=== PATIENT | male | born 1940 | race Caucasian/White ===

== ENCOUNTER 2019-02-03 20:17 | Inpatient (IN) | payer MEDICARE, BC ==
[~2019-02-03] VITALS: Ht 188 cm; Wt 70.4 kg
--- NOTE | 2019-02-03 20:35 | NUR ---
PT. BIB EMS FROM [facility] FOR C/O WEAKNESS AND 2 DAYS OF CONFUSION AFTER RECENTLY MOVING TO THE AREA. REPORTS ANXIETY SINCE MOVE, PER SON WAS STARTED ON ATARAX FOR THAT. PT. WITH DIFFUSE RASH FROM TORSO DOWN TO ARMS/LEGS; PER SON PT. HAS A SIMILAR RASH LAST YEAR WHEN HE WAS ALSO ANEMIC. PT. 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 PT. IS A&O X 4 ON ARRIVAL. SON AT BS. EKG DONE AND PRESENTED TO ERMD. PT. PLACED ON MONITORS. CALL LIGHT IN REACH. ALL SAFETY MEASURES OBSERVED. DR. ROBIN IN TO EVAL PT. AND DISCUSS POC WITH PT. AND SON.
[2019-02-03] MEDS ORDERED: SODIUM CHLORIDE 0.9%, 500ML IVBOLUS ONE ×2 (21:00→21:30)
[2019-02-03] MEDS ORDERED: SODIUM CHLORIDE 0.9% 1,000 ML IV ONE (21:00)
--- NOTE | 2019-02-03 21:19 | NUR ---
B/P AFTER FLUID BOLUS REPORTED TO DR. ROBIN. NEW ORDER FOR 2ND 500ML BOLUS; INITIATED AT THIS TIME.
[2019-02-03 21:21] LABS: ANION GAP 11 mmol/L (5-15); CALCIUM 7.9 mg/dL (8.5-10.1); CHLORIDE 101 mmol/L (98-107); CREATININE 2.65 mg/dL (0.7-1.3)
[2019-02-03] MEDS ORDERED: ONDANSETRON ODT 4 MG PO PRN (22:30)
[2019-02-03] MEDS ORDERED: PROMETHAZINE 25 MG/ML, 1ML IM PRN (22:30)
[2019-02-03] MEDS ORDERED: morphine SULFATE 10 MG/ML, 1ML IVPush PRN (22:30)
[2019-02-03] MEDS ORDERED: DOCUSATE 100 MG CAPSULE PO PRN (22:30)
[2019-02-03] MEDS ORDERED: ONDANSETRON 2MG/ML, 2ML IVPush PRN (22:30)
[2019-02-03] MEDS ORDERED: OXYcodone IR 5MG TABLET PO PRN (22:30)
[2019-02-03] MEDS ORDERED: BISACODYL 10 MG SUPP PR PRN (22:30)
[2019-02-03] MEDS ORDERED: LEVOTHYROXINE 75 MCG TABLET PO SCH (23:00)
[2019-02-03] MEDS: FAMOTIDINE 20 MG TABLET PO SCH (23:07)
[2019-02-03] MEDS: SODIUM CHLORIDE 0.9% 1,000 ML IV SCH (23:07)
[2019-02-03] MEDS: methylPREDNISolone SOD SUCC 40 MG/ML IVPush SCH (23:07)
[2019-02-03 23:08] LABS: FREE T4 (FREE THYROXINE) 0.13 ng/dL (0.76-1.46)
[2019-02-03 23:20] LABS: HEMOGLOBIN A1C 4.5 % (4.2-6.3)
[2019-02-04] VITALS (11 sets, daily range): BP systolic 88–102; BP diastolic 44–64
[2019-02-04] MEDS ORDERED: CARB1TAB5 PO
[2019-02-04] MEDS ORDERED: CARB1TAB2 PO ×2
[2019-02-04 05:36] LABS: MEAN CORPUSCULAR HEMOGLOBIN 34.4 pg (27.5-34.5); MEAN CORPUSCULAR HGB CONC 33.4 g/dL (33.2-36.2); MEAN CORPUSCULAR VOLUME 102.8 fL (81-97); RED BLOOD COUNT 1.88 x10^6/uL (4.38-5.82); RED CELL DISTRIBUTION WIDTH 19.9 % (9.4-14.8)
[2019-02-04 05:40] LABS: CHLORIDE 102 mmol/L (98-107)
[2019-02-04 05:46] LABS: ALANINE AMINOTRANSFERASE < 6 U/L (12-78); ALBUMIN 2.1 g/dL (3.4-5.0); ALKALINE PHOSPHATASE 158 U/L (45-117); ANION GAP 11 mmol/L (5-15); BILIRUBIN,TOTAL 0.8 mg/dL (0.2-1.0); CALCIUM 7.3 mg/dL (8.5-10.1); CHOL/HDL RATIO 2.2; CHOLESTEROL, TOTAL 52 mg/dL (140-239); CREATININE 2.37 mg/dL (0.7-1.3); HDL CHOL % 46 % (26-37); HDL CHOLESTEROL (DIRECT) 24 mg/dL (40-60); LDL CHOLESTEROL,CALCULATED 10 mg/dL (54-169); LDL/HDL RATIO 0.4 (0.5-3.0); TOTAL PROTEIN 6.1 g/dL (6.4-8.2); TRIGLYCERIDES 90 mg/dL (50-200); VLDL CHOLESTEROL 18 mg/dL (0-25)
[2019-02-04 06:02] LABS: MD YES; MEAN PLATELET VOLUME 7.7 fL (7.4-10.4); PLATELET COUNT 89 x10^3/uL (130-400)
[2019-02-04 06:03] LABS: BAND#(MANUAL) 0.68 x10^3/uL; BANDS%(MANUAL) 4 % (0-7); LYMPH#(MANUAL) 0.85 x10^3/uL (1-3.4); LYMPHS% (MANUAL) 5 % (22-44); METAMYELOCYTES# (MANUAL) 0.51 x10^3/uL (0-0); METAMYELOCYTES% (MANUAL) 3 % (0-1); MONOS#(MANUAL) 0.17 x10^3/uL (0.3-2.7); MONOS% (MANUAL) 1 % (2-9); SEG#(MANUAL) 14.79 x10^3/uL (1.8-6.8); SEGS% (MANUAL) 87 % (42-75)
[2019-02-04 06:05] LABS: ANISOCYTOSIS 1+; POLYCHROMASIA 1+
[2019-02-04 06:06] LABS: <PLATELET ESTIMATE> DECREASED; <PLT MORPHOLOGY> NORMAL PLT MORPH
[2019-02-04 07:23] LABS: ABSOLUTE RETICS # 0.062 x10^6/uL (0.5-1.5); RETICULOCYTE COUNT % 2.92 % (0.5-1.5)
[2019-02-04] MEDS: SODIUM CHLORIDE 0.9% 1,000 ML IV SCH (07:43)
[2019-02-04 07:54] LABS: RED BLOOD COUNT 2.13 x10^6/uL (4.38-5.82)
[2019-02-04 08:10] LABS: D-DIMER 10.1 ug/mlFEU (0.00-0.52); INTERNATIONAL NORMALIZED RATIO 1.15 (0.93-1.1)
[2019-02-04] MEDS: LORATADINE 10 MG TABLET PO SCH (08:11)
[2019-02-04] MEDS: FAMOTIDINE 20 MG TABLET PO SCH (08:11)
[2019-02-04] MEDS ORDERED: CARBIDOPA/LEVODOPA 25 MG/100 MG TABLET HOMEMEDPO SCH ×2 (09:00→16:00)
[2019-02-04] MEDS ORDERED: CARBIDOPA/LEVODOPA CR 50 MG/200 MG TABLET HOMEMEDPO SCH (09:00)
[2019-02-04] MEDS ORDERED: SODIUM CHLORIDE 0.9% 1,000ML IVBOLUS ONE (09:30)
[2019-02-04] MEDS: methylPREDNISolone SOD SUCC 40 MG/ML IVPush SCH ×2 (10:32→23:42)
[2019-02-04 10:53] LABS: MICROSCOPIC INDICATED
[2019-02-04 11:15] LABS: CULTURE INDICATED? NO
[2019-02-04 12:10] LABS: MEAN CORPUSCULAR HEMOGLOBIN 32.5 pg (27.5-34.5); MEAN CORPUSCULAR HGB CONC 33.1 g/dL (33.2-36.2); MEAN CORPUSCULAR VOLUME 98.3 fL (81-97); MEAN PLATELET VOLUME 6.7 fL (7.4-10.4); PLATELET COUNT 147 x10^3/uL (130-400); RED BLOOD COUNT 2.35 x10^6/uL (4.38-5.82); RED CELL DISTRIBUTION WIDTH 22.7 % (9.4-14.8)
[2019-02-04 12:27] LABS: MD YES
[2019-02-04 12:29] LABS: BANDS%(MANUAL) 3 % (0-7); LYMPH#(MANUAL) 1.46 x10^3/uL (1-3.4); LYMPHS% (MANUAL) 11 % (22-44); METAMYELOCYTES% (MANUAL) 3 % (0-1); MONOS#(MANUAL) 0.13 x10^3/uL (0.3-2.7); MONOS% (MANUAL) 1 % (2-9); MYELOCYTES% (MANUAL) 3 % (0-0); SEG#(MANUAL) 10.51 x10^3/uL (1.8-6.8); SEGS% (MANUAL) 79 % (42-75)
[2019-02-04 12:34] LABS: <PLATELET ESTIMATE> ADEQUATE; <PLT MORPHOLOGY> NORMAL PLT MORPH; ANISOCYTOSIS 1+; POLYCHROMASIA 1+
[2019-02-04] MEDS: CARBIDOPA/LEVODOPA CR 25 MG/100 MG TABLET PO SCH (13:30)
[2019-02-04] MEDS ORDERED: CARBIDOPA/LEVODOPA CR 25 MG/100 MG TABLET PO SCH (16:00)
[2019-02-04 18:43] LABS: MEAN CORPUSCULAR HEMOGLOBIN 33.5 pg (27.5-34.5); MEAN CORPUSCULAR HGB CONC 33.5 g/dL (33.2-36.2); MEAN PLATELET VOLUME 7.2 fL (7.4-10.4); PLATELET COUNT 134 x10^3/uL (130-400); RED BLOOD COUNT 2.17 x10^6/uL (4.38-5.82); RED CELL DISTRIBUTION WIDTH 22.7 % (9.4-14.8)
[2019-02-04 19:06] LABS: HEMOGRAM NOTE RECHECKED
[2019-02-04 19:07] LABS: MD YES
[2019-02-04 19:09] LABS: ANISOCYTOSIS 1+; BAND#(MANUAL) 1.27 x10^3/uL; BANDS%(MANUAL) 9 % (0-7); LYMPH#(MANUAL) 0.99 x10^3/uL (1-3.4); LYMPHS% (MANUAL) 7 % (22-44); METAMYELOCYTES# (MANUAL) 0.28 x10^3/uL (0-0); METAMYELOCYTES% (MANUAL) 2 % (0-1); MONOS#(MANUAL) 0.28 x10^3/uL (0.3-2.7); MONOS% (MANUAL) 2 % (2-9); MYELOCYTES# (MANUAL) 0.28 x10^3/uL (0-0); MYELOCYTES% (MANUAL) 2 % (0-0); POLYCHROMASIA 1+; SEGS% (MANUAL) 78 % (42-75)
[2019-02-04 19:10] LABS: <PLATELET ESTIMATE> ADEQUATE; <PLT MORPHOLOGY> NORMAL PLT MORPH
[2019-02-04] MEDS: CARBIDOPA/LEVODOPA CR 50 MG/200 MG TABLET HOMEMEDPO SCH (21:02)
[2019-02-05] VITALS (10 sets, daily range): BP systolic 86–93; BP diastolic 46–56
[2019-02-05 00:16] LABS: MEAN CORPUSCULAR HGB CONC 32.9 g/dL (33.2-36.2); MEAN CORPUSCULAR VOLUME 100.3 fL (81-97); PLATELET COUNT 140 x10^3/uL (130-400); RED BLOOD COUNT 2.19 x10^6/uL (4.38-5.82); RED CELL DISTRIBUTION WIDTH 23.1 % (9.4-14.8)
[2019-02-05 00:28] LABS: MD YES
[2019-02-05 00:30] LABS: ANISOCYTOSIS 1+; BAND#(MANUAL) 1.02 x10^3/uL; BANDS%(MANUAL) 7 % (0-7); LYMPH#(MANUAL) 2.47 x10^3/uL (1-3.4); LYMPHS% (MANUAL) 17 % (22-44); METAMYELOCYTES# (MANUAL) 0.15 x10^3/uL (0-0); METAMYELOCYTES% (MANUAL) 1 % (0-1); MONOS#(MANUAL) 0.29 x10^3/uL (0.3-2.7); MONOS% (MANUAL) 2 % (2-9); MYELOCYTES# (MANUAL) 0.29 x10^3/uL (0-0); MYELOCYTES% (MANUAL) 2 % (0-0); OVALOCYTES 1+; POLYCHROMASIA 1+; SEGS% (MANUAL) 71 % (42-75)
[2019-02-05 00:31] LABS: <PLATELET ESTIMATE> ADEQUATE; <PLT MORPHOLOGY> NORMAL PLT MORPH
[2019-02-05 06:03] LABS: MEAN CORPUSCULAR HGB CONC 32.7 g/dL (33.2-36.2); MEAN PLATELET VOLUME 7.3 fL (7.4-10.4); PLATELET COUNT 136 x10^3/uL (130-400); RED BLOOD COUNT 2.16 x10^6/uL (4.38-5.82); RED CELL DISTRIBUTION WIDTH 22.4 % (9.4-14.8)
[2019-02-05 06:09] LABS: ANION GAP 7 mmol/L (5-15); CALCIUM 7.1 mg/dL (8.5-10.1); CHLORIDE 107 mmol/L (98-107); CREATININE 2.34 mg/dL (0.7-1.3)
[2019-02-05] MEDS: PANTOPROZOLE 40MG TABLET PO SCH (06:12)
[2019-02-05] MEDS: LEVOTHYROXINE 75 MCG TABLET PO SCH (06:12)
[2019-02-05 06:47] LABS: MD YES
[2019-02-05 06:50] LABS: ANISOCYTOSIS 1+; BAND#(MANUAL) 1.76 x10^3/uL; BANDS%(MANUAL) 11 % (0-7); EOS#(MANUAL) 0.16 x10^3/uL (0.0-0.4); EOS% (MANUAL) 1 % (1-7); LYMPH#(MANUAL) 0.96 x10^3/uL (1-3.4); LYMPHS% (MANUAL) 6 % (22-44); METAMYELOCYTES# (MANUAL) 1.44 x10^3/uL (0-0); METAMYELOCYTES% (MANUAL) 9 % (0-1); MONOS#(MANUAL) 0.64 x10^3/uL (0.3-2.7); MONOS% (MANUAL) 4 % (2-9); MYELOCYTES# (MANUAL) 0.16 x10^3/uL (0-0); MYELOCYTES% (MANUAL) 1 % (0-0); SEG#(MANUAL) 10.88 x10^3/uL (1.8-6.8); SEGS% (MANUAL) 68 % (42-75)
[2019-02-05 06:51] LABS: POLYCHROMASIA 1+
[2019-02-05 06:52] LABS: <PLATELET ESTIMATE> ADEQUATE; <PLT MORPHOLOGY> NORMAL PLT MORPH; OVALOCYTES 1+
[2019-02-05] MEDS ORDERED: CARBIDOPA/LEVODOPA 25 MG/100 MG TABLET PO SCH (07:30)
[2019-02-05] MEDS: CARBIDOPA/LEVODOPA CR 25 MG/100 MG TABLET PO SCH ×2 (08:00→12:00)
[2019-02-05] MEDS: FAMOTIDINE 20 MG TABLET PO SCH (08:34)
[2019-02-05] MEDS: LORATADINE 10 MG TABLET PO SCH (08:34)
[2019-02-05] MEDS: MIDODRINE 5 MG TABLET PO SCH ×3 (08:35→21:27)
[2019-02-05] MEDS: CARBIDOPA/LEVODOPA CR 50 MG/200 MG TABLET HOMEMEDPO SCH ×2 (08:36→21:27)
[2019-02-05] MEDS ORDERED: NALOXONE 1 MG/ML, 2ML ONE (09:29)
[2019-02-05] MEDS ORDERED: FLUMAZENIL 0.1 MG/1 ML, 5ML ONE (09:29)
[2019-02-05] MEDS ORDERED: MIDAZOLAM 1 MG/ML, 5ML ONE ×2 (09:29)
[2019-02-05] MEDS ORDERED: FENTANYL PF 100 MCG/2ML ONE ×2 (09:29)
[2019-02-05] MEDS: methylPREDNISolone SOD SUCC 40 MG/ML IVPush SCH ×2 (10:30→22:35)
[2019-02-05 12:30] LABS: MEAN CORPUSCULAR HEMOGLOBIN 32.4 pg (27.5-34.5); MEAN CORPUSCULAR HGB CONC 32.6 g/dL (33.2-36.2); MEAN CORPUSCULAR VOLUME 99.4 fL (81-97); MEAN PLATELET VOLUME 7.2 fL (7.4-10.4); PLATELET COUNT 140 x10^3/uL (130-400); RED BLOOD COUNT 2.33 x10^6/uL (4.38-5.82); RED CELL DISTRIBUTION WIDTH 22.5 % (9.4-14.8)
[2019-02-05 12:55] LABS: MD YES
[2019-02-05 12:56] LABS: BAND#(MANUAL) 0.44 x10^3/uL; BANDS%(MANUAL) 3 % (0-7); LYMPH#(MANUAL) 1.92 x10^3/uL (1-3.4); LYMPHS% (MANUAL) 13 % (22-44); METAMYELOCYTES# (MANUAL) 0.44 x10^3/uL (0-0); METAMYELOCYTES% (MANUAL) 3 % (0-1); MONOS#(MANUAL) 0.15 x10^3/uL (0.3-2.7); MONOS% (MANUAL) 1 % (2-9); SEG#(MANUAL) 11.84 x10^3/uL (1.8-6.8); SEGS% (MANUAL) 80 % (42-75)
[2019-02-05 12:57] LABS: <PLATELET ESTIMATE> ADEQUATE; <PLT MORPHOLOGY> NORMAL PLT MORPH; ANISOCYTOSIS 1+; OVALOCYTES 1+; POLYCHROMASIA 1+
[2019-02-05 12:58] LABS: BASOPHILS # (AUTO) 0.01 x10^3/uL (0-0.1); BASOPHILS % (AUTO) 0 % (0-1); EOSINOPHILS % (AUTO) 0 % (1-7); LYMPHOCYTES # (AUTO) 1.73 x10^3/uL (1-3.4); LYMPHOCYTES % (AUTO) 12 % (22-44); MONOCYTES # (AUTO) 0.04 x10^3/uL (0.2-0.8); MONOCYTES % (AUTO) 0 % (2-9); NEUTROPHILS # (AUTO) 13.02 x10^3/uL (1.8-6.8); NEUTROPHILS % (AUTO) 88 % (42-75)
[2019-02-05] MEDS: POLYETHYLENE GLYCOL 17 GM PACKET PO PRN (16:45)
[2019-02-05 18:30] LABS: MEAN CORPUSCULAR HEMOGLOBIN 33.5 pg (27.5-34.5); MEAN CORPUSCULAR HGB CONC 33.4 g/dL (33.2-36.2); MEAN CORPUSCULAR VOLUME 100.1 fL (81-97); MEAN PLATELET VOLUME 7.1 fL (7.4-10.4); PLATELET COUNT 131 x10^3/uL (130-400); RED BLOOD COUNT 2.07 x10^6/uL (4.38-5.82); RED CELL DISTRIBUTION WIDTH 22.2 % (9.4-14.8)
[2019-02-05 18:34] LABS: MD YES
[2019-02-05 19:23] LABS: ANISOCYTOSIS 1+; BAND#(MANUAL) 0.82 x10^3/uL; BANDS%(MANUAL) 6 % (0-7); LYMPH#(MANUAL) 1.51 x10^3/uL (1-3.4); LYMPHS% (MANUAL) 11 % (22-44); METAMYELOCYTES# (MANUAL) 0.96 x10^3/uL (0-0); METAMYELOCYTES% (MANUAL) 7 % (0-1); MYELOCYTES# (MANUAL) 0.27 x10^3/uL (0-0); MYELOCYTES% (MANUAL) 2 % (0-0); OVALOCYTES 1+; POLYCHROMASIA 1+; SEG#(MANUAL) 10.14 x10^3/uL (1.8-6.8); SEGS% (MANUAL) 74 % (42-75)
[2019-02-05 19:24] LABS: <PLATELET ESTIMATE> ADEQUATE; <PLT MORPHOLOGY> NORMAL PLT MORPH
[2019-02-06 00:33] VITALS: BP 91/46
[2019-02-06 00:35] VITALS: BP 94/43
[2019-02-06 05:44] LABS: MEAN CORPUSCULAR HEMOGLOBIN 32.4 pg (27.5-34.5); MEAN CORPUSCULAR HGB CONC 33.1 g/dL (33.2-36.2); MEAN CORPUSCULAR VOLUME 97.8 fL (81-97); MEAN PLATELET VOLUME 6.9 fL (7.4-10.4); PLATELET COUNT 137 x10^3/uL (130-400); RED BLOOD COUNT 2.53 x10^6/uL (4.38-5.82); RED CELL DISTRIBUTION WIDTH 23.1 % (9.4-14.8)
[2019-02-06 05:47] LABS: ANION GAP 9 mmol/L (5-15); CALCIUM 6.8 mg/dL (8.5-10.1); CHLORIDE 108 mmol/L (98-107)
[2019-02-06 05:49] LABS: CREATININE 2.13 mg/dL (0.7-1.3)
[2019-02-06] MEDS: PANTOPROZOLE 40MG TABLET PO SCH (05:49)
[2019-02-06] MEDS: LEVOTHYROXINE 75 MCG TABLET PO SCH (05:49)
[2019-02-06 06:07] LABS: MD YES
[2019-02-06 06:10] LABS: ANISOCYTOSIS 1+; BAND#(MANUAL) 0.98 x10^3/uL; BANDS%(MANUAL) 6 % (0-7); LYMPH#(MANUAL) 2.28 x10^3/uL (1-3.4); LYMPHS% (MANUAL) 14 % (22-44); METAMYELOCYTES# (MANUAL) 0.82 x10^3/uL (0-0); METAMYELOCYTES% (MANUAL) 5 % (0-1); MONOS#(MANUAL) 0.16 x10^3/uL (0.3-2.7); MONOS% (MANUAL) 1 % (2-9); MYELOCYTES# (MANUAL) 1.14 x10^3/uL (0-0); MYELOCYTES% (MANUAL) 7 % (0-0); SEG#(MANUAL) 10.92 x10^3/uL (1.8-6.8); SEGS% (MANUAL) 67 % (42-75)
[2019-02-06 06:11] LABS: ECHINOCYTES 1+; OVALOCYTES 1+; POLYCHROMASIA 1+
[2019-02-06 06:13] LABS: <PLATELET ESTIMATE> ADEQUATE; <PLT MORPHOLOGY> NORMAL PLT MORPH; CRENATED 1+
[2019-02-06] MEDS: CARBIDOPA/LEVODOPA CR 25 MG/100 MG TABLET PO SCH ×4 (08:00→20:27)
[2019-02-06] MEDS: MIDODRINE 5 MG TABLET PO SCH ×3 (08:21→20:27)
[2019-02-06] MEDS: LORATADINE 10 MG TABLET PO SCH (08:21)
[2019-02-06] MEDS: FAMOTIDINE 20 MG TABLET PO SCH (08:21)
[2019-02-06] MEDS: POLYETHYLENE GLYCOL 17 GM PACKET PO PRN (08:21)
[2019-02-06] MEDS: CARBIDOPA/LEVODOPA CR 50 MG/200 MG TABLET HOMEMEDPO SCH ×2 (08:22→09:00)
[2019-02-06] MEDS: methylPREDNISolone SOD SUCC 40 MG/ML IVPush SCH ×2 (09:15→22:59)
[2019-02-06 12:22] VITALS: BP 100/58
[2019-02-06] MEDS: LACTULOSE 20 GM/30 ML UDC PO SCH ×2 (16:21→20:27)
[2019-02-06 18:59] VITALS: BP 106/58
[2019-02-07] VITALS (7 sets, daily range): BP systolic 92–126; BP diastolic 50–82
[2019-02-07] MEDS ORDERED: MELATONIN 5 MG TABLET PO PRN (04:30)
[2019-02-07 05:14] LABS: ANION GAP 7 mmol/L (5-15); CALCIUM 6.7 mg/dL (8.5-10.1); CHLORIDE 110 mmol/L (98-107)
[2019-02-07 05:15] LABS: MEAN CORPUSCULAR HEMOGLOBIN 32.4 pg (27.5-34.5); MEAN CORPUSCULAR HGB CONC 33.2 g/dL (33.2-36.2); MEAN CORPUSCULAR VOLUME 97.8 fL (81-97); PLATELET COUNT 130 x10^3/uL (130-400); RED BLOOD COUNT 2.43 x10^6/uL (4.38-5.82); RED CELL DISTRIBUTION WIDTH 22.3 % (9.4-14.8)
[2019-02-07 05:58] LABS: MD YES
[2019-02-07 06:05] LABS: <PLATELET ESTIMATE> ADEQUATE; <PLT MORPHOLOGY> NORMAL PLT MORPH; ANISOCYTOSIS 1+; BAND#(MANUAL) 1.19 x10^3/uL; BANDS%(MANUAL) 7 % (0-7); CRENATED 1+; LYMPHS% (MANUAL) 10 % (22-44); METAMYELOCYTES# (MANUAL) 1.87 x10^3/uL (0-0); METAMYELOCYTES% (MANUAL) 11 % (0-1); MONOS#(MANUAL) 0.17 x10^3/uL (0.3-2.7); MONOS% (MANUAL) 1 % (2-9); MYELOCYTES# (MANUAL) 0.68 x10^3/uL (0-0); MYELOCYTES% (MANUAL) 4 % (0-0); OVALOCYTES 1+; POLYCHROMASIA 1+; SEG#(MANUAL) 11.39 x10^3/uL (1.8-6.8); SEGS% (MANUAL) 67 % (42-75)
[2019-02-07] MEDS: PANTOPROZOLE 40MG TABLET PO SCH (06:22)
[2019-02-07] MEDS: LEVOTHYROXINE 75 MCG TABLET PO SCH (06:22)
[2019-02-07] MEDS: MIDODRINE 5 MG TABLET PO SCH ×3 (07:59→20:22)
[2019-02-07] MEDS: CARBIDOPA/LEVODOPA CR 50 MG/200 MG TABLET HOMEMEDPO SCH (07:59)
[2019-02-07] MEDS ORDERED: hydrOXyzine 10MG TABLET PO PRN (09:00)
[2019-02-07] MEDS: LORATADINE 10 MG TABLET PO SCH (09:17)
[2019-02-07] MEDS: LACTULOSE 20 GM/30 ML UDC PO SCH ×2 (09:17→20:22)
[2019-02-07] MEDS: CARBIDOPA/LEVODOPA CR 25 MG/100 MG TABLET PO SCH ×3 (09:17→20:22)
[2019-02-07] MEDS: methylPREDNISolone SOD SUCC 40 MG/ML IVPush SCH (09:18)
[2019-02-07 11:11] LABS: OCCULT BLOOD NEGATIVE (NEGATIVE)
[2019-02-07] MEDS ORDERED: ARANESP 100 MCG/ML **ESRD SQ SCH ×2 (12:00→13:00)
[2019-02-08 00:37] LABS: OCCULT BLOOD NEGATIVE (NEGATIVE)
[2019-02-08 01:18] VITALS: BP 104/51
[2019-02-08 05:10] LABS: MEAN CORPUSCULAR HEMOGLOBIN 32.6 pg (27.5-34.5); MEAN CORPUSCULAR HGB CONC 33.1 g/dL (33.2-36.2); MEAN CORPUSCULAR VOLUME 98.7 fL (81-97); MEAN PLATELET VOLUME 7.1 fL (7.4-10.4); PLATELET COUNT 127 x10^3/uL (130-400); RED BLOOD COUNT 2.61 x10^6/uL (4.38-5.82); RED CELL DISTRIBUTION WIDTH 22.5 % (9.4-14.8)
[2019-02-08 05:18] LABS: ANION GAP 8 mmol/L (5-15); CHLORIDE 110 mmol/L (98-107)
[2019-02-08 05:20] LABS: CREATININE 1.91 mg/dL (0.7-1.3)
[2019-02-08 05:38] LABS: MD YES
[2019-02-08 05:46] LABS: BAND#(MANUAL) 1.26 x10^3/uL; BANDS%(MANUAL) 8 % (0-7); LYMPH#(MANUAL) 2.69 x10^3/uL (1-3.4); LYMPHS% (MANUAL) 17 % (22-44); METAMYELOCYTES# (MANUAL) 1.74 x10^3/uL (0-0); METAMYELOCYTES% (MANUAL) 11 % (0-1); MYELOCYTES# (MANUAL) 1.42 x10^3/uL (0-0); MYELOCYTES% (MANUAL) 9 % (0-0); NRBC % (MANUAL) 1 % (0-1); SEG#(MANUAL) 8.69 x10^3/uL (1.8-6.8); SEGS% (MANUAL) 55 % (42-75)
[2019-02-08 05:47] LABS: ANISOCYTOSIS 1+
[2019-02-08 05:48] LABS: OVALOCYTES 1+; POLYCHROMASIA 1+
[2019-02-08 05:52] LABS: CRENATED 1+
[2019-02-08 05:53] LABS: <PLATELET ESTIMATE> ADEQUATE; <PLT MORPHOLOGY> NORMAL PLT MORPH
[2019-02-08] MEDS: LEVOTHYROXINE 75 MCG TABLET PO SCH (06:36)
[2019-02-08] MEDS: PANTOPROZOLE 40MG TABLET PO SCH (06:37)
[2019-02-08 07:20] VITALS: BP 116/65
[2019-02-08] MEDS: CARBIDOPA/LEVODOPA CR 50 MG/200 MG TABLET HOMEMEDPO SCH (08:45)
[2019-02-08] MEDS: LORATADINE 10 MG TABLET PO SCH (08:46)
[2019-02-08] MEDS: LACTULOSE 20 GM/30 ML UDC PO SCH ×2 (08:46→20:29)
[2019-02-08] MEDS: CARBIDOPA/LEVODOPA CR 25 MG/100 MG TABLET PO SCH ×3 (08:46→20:29)
[2019-02-08] MEDS: MIDODRINE 5 MG TABLET PO SCH ×4 (08:46→20:29)
[2019-02-08] MEDS: methylPREDNISolone SOD SUCC 40 MG/ML IVPush SCH (08:46)
[2019-02-08 14:16] VITALS: BP 116/64
[2019-02-08 19:23] VITALS: BP 106/56
[2019-02-09 00:10] VITALS: BP 133/64
[2019-02-09] MEDS: LEVOTHYROXINE 75 MCG TABLET PO SCH (05:20)
[2019-02-09] MEDS: PANTOPROZOLE 40MG TABLET PO SCH (05:20)
[2019-02-09 05:35] LABS: MEAN CORPUSCULAR HEMOGLOBIN 32.9 pg (27.5-34.5); MEAN CORPUSCULAR HGB CONC 33.2 g/dL (33.2-36.2); MEAN PLATELET VOLUME 7.4 fL (7.4-10.4); PLATELET COUNT 113 x10^3/uL (130-400); RED BLOOD COUNT 2.96 x10^6/uL (4.38-5.82); RED CELL DISTRIBUTION WIDTH 22.2 % (9.4-14.8)
[2019-02-09 05:50] LABS: CHLORIDE 110 mmol/L (98-107)
[2019-02-09 05:54] LABS: MD YES
[2019-02-09 05:57] LABS: ANISOCYTOSIS 1+; BAND#(MANUAL) 0.48 x10^3/uL; BANDS%(MANUAL) 3 % (0-7); EOS#(MANUAL) 0.16 x10^3/uL (0.0-0.4); EOS% (MANUAL) 1 % (1-7); LYMPHS% (MANUAL) 10 % (22-44); METAMYELOCYTES# (MANUAL) 1.28 x10^3/uL (0-0); METAMYELOCYTES% (MANUAL) 8 % (0-1); MONOS#(MANUAL) 0.32 x10^3/uL (0.3-2.7); MONOS% (MANUAL) 2 % (2-9); MYELOCYTES# (MANUAL) 0.96 x10^3/uL (0-0); MYELOCYTES% (MANUAL) 6 % (0-0); OVALOCYTES 1+; POLYCHROMASIA 1+; SEGS% (MANUAL) 70 % (42-75)
[2019-02-09 05:58] LABS: <PLATELET ESTIMATE> DECREASED; <PLT MORPHOLOGY> NORMAL PLT MORPH
[2019-02-09 06:09] LABS: ANION GAP 8 mmol/L (5-15); CALCIUM 7.4 mg/dL (8.5-10.1); CREATININE 1.78 mg/dL (0.7-1.3)
[2019-02-09 07:13] VITALS: BP 130/60
[2019-02-09] MEDS: MIDODRINE 5 MG TABLET PO SCH ×4 (09:00→21:23)
[2019-02-09] MEDS: CARBIDOPA/LEVODOPA CR 50 MG/200 MG TABLET HOMEMEDPO SCH (09:00)
[2019-02-09] MEDS: methylPREDNISolone SOD SUCC 40 MG/ML IVPush SCH (09:12)
[2019-02-09] MEDS: CARBIDOPA/LEVODOPA CR 25 MG/100 MG TABLET PO SCH ×3 (09:12→21:22)
[2019-02-09] MEDS: LACTULOSE 20 GM/30 ML UDC PO SCH ×2 (09:12→21:00)
[2019-02-09] MEDS: LORATADINE 10 MG TABLET PO SCH (09:16)
[2019-02-09 13:41] VITALS: BP 111/64
[2019-02-09 16:16] LABS: ANA SCREEN NEGATIVE (Negative)
[2019-02-09 19:04] VITALS: BP 94/58
[2019-02-10 01:34] VITALS: BP 135/74
[2019-02-10] MEDS: PANTOPROZOLE 40MG TABLET PO SCH (06:21)
[2019-02-10] MEDS: LEVOTHYROXINE 75 MCG TABLET PO SCH (06:21)
[2019-02-10 07:23] LABS: ANION GAP 4 mmol/L (5-15); CALCIUM 7.1 mg/dL (8.5-10.1); CHLORIDE 111 mmol/L (98-107); CREATININE 1.61 mg/dL (0.7-1.3)
[2019-02-10 08:05] VITALS: BP 130/76
[2019-02-10 08:19] LABS: MEAN CORPUSCULAR HEMOGLOBIN 32.2 pg (27.5-34.5); MEAN CORPUSCULAR HGB CONC 33.2 g/dL (33.2-36.2); MEAN CORPUSCULAR VOLUME 97.2 fL (81-97); MEAN PLATELET VOLUME 7.4 fL (7.4-10.4); PLATELET COUNT 94 x10^3/uL (130-400); RED BLOOD COUNT 2.88 x10^6/uL (4.38-5.82); RED CELL DISTRIBUTION WIDTH 21.5 % (9.4-14.8)
[2019-02-10 08:36] LABS: MD YES
[2019-02-10 08:39] LABS: BANDS%(MANUAL) 11 % (0-7); LYMPH#(MANUAL) 2.86 x10^3/uL (1-3.4); LYMPHS% (MANUAL) 21 % (22-44); METAMYELOCYTES# (MANUAL) 1.77 x10^3/uL (0-0); METAMYELOCYTES% (MANUAL) 13 % (0-1); MONOS#(MANUAL) 0.54 x10^3/uL (0.3-2.7); MONOS% (MANUAL) 4 % (2-9); MYELOCYTES# (MANUAL) 0.54 x10^3/uL (0-0); MYELOCYTES% (MANUAL) 4 % (0-0); NRBC % (MANUAL) 1 % (0-1); SEG#(MANUAL) 6.39 x10^3/uL (1.8-6.8); SEGS% (MANUAL) 47 % (42-75)
[2019-02-10 08:40] LABS: <PLATELET ESTIMATE> DECREASED; <PLT MORPHOLOGY> NORMAL PLT MORPH; ANISOCYTOSIS 1+; OVALOCYTES 1+; POLYCHROMASIA 1+
[2019-02-10] MEDS: methylPREDNISolone SOD SUCC 40 MG/ML IVPush SCH (08:50)
[2019-02-10] MEDS: LACTULOSE 20 GM/30 ML UDC PO SCH (08:50)
[2019-02-10] MEDS: LORATADINE 10 MG TABLET PO SCH (08:50)
[2019-02-10] MEDS: CARBIDOPA/LEVODOPA CR 25 MG/100 MG TABLET PO SCH (08:50)
[2019-02-10] MEDS: CARBIDOPA/LEVODOPA CR 50 MG/200 MG TABLET HOMEMEDPO SCH (08:52)
[2019-02-10] MEDS: MIDODRINE 5 MG TABLET PO SCH (08:52)
[2019-02-10] MEDS ORDERED: CLOB15CR19 TP (10:28)
[2019-02-10] MEDS ORDERED: MIDO5TAB9 PO (10:28)
[2019-02-10] MEDS ORDERED: POLY17PO5 PO (10:28)
[2019-02-10] MEDS ORDERED: LACT20SO13 PO (10:28)
[2019-02-10] MEDS ORDERED: CARB1TAB44 HOMEMEDPO (10:28)
[2019-02-10] MEDS ORDERED: DARB100V SQ (10:28)
[2019-02-10] MEDS ORDERED: MELA5TAB14 PO (10:28)
[2019-02-10] MEDS ORDERED: HYDR10TA4 PO (10:28)
[2019-02-10] MEDS ORDERED: PANT40TA5 PO (10:28)
[2019-02-10] MEDS ORDERED: ONDA4TAB13 PO (10:28)
[2019-02-10] MEDS ORDERED: DOCU-131 PO (10:28)
[2019-02-10] MEDS ORDERED: PRED20TA PO (10:28)
[2019-02-10] MEDS ORDERED: LORA-247 PO (10:28)
[2019-02-10] MEDS ORDERED: LEVO75TA PO (10:28)
[2019-02-10] MEDS ORDERED: CARB1TAB43 PO (10:28)
[2019-02-10] MEDS ORDERED: ERGOCALCIFEROL 50,000 UNIT CAPSULE PO SCH (12:00)
[2019-02-10 13:04] VITALS: BP 134/78
[2019-02-10] MEDS ORDERED: MEGE400O2 PO (13:17)
== END 2019-02-10 15:40 | DRG 682 ==
LOC: ED 21:18 → EDIP 21:37 → 3N 21:45
PROVIDERS: ADMIT Internal Medicine; ATTEND Internal Medicine
PROC: 30233N1 Transfusion of Nonautologous Red Blood Cells into Peripheral Vein, Percutaneous Approach (ICD-10-PCS; principal; 2019-02-04)
PROC: 0TB13ZX Excision of Left Kidney, Percutaneous Approach, Diagnostic (ICD-10-PCS; 2019-02-05)
DX: N17.0 Acute kidney failure with tubular necrosis (principal); E43 Unspecified severe protein-calorie malnutrition; E87.1 Hypo-osmolality and hyponatremia; Z68.1 Body mass index [BMI] 19.9 or less, adult; I95.9 Hypotension, unspecified; D58.2 Other hemoglobinopathies; D63.8 Anemia in other chronic diseases classified elsewhere; D69.6 Thrombocytopenia, unspecified; D72.829 Elevated white blood cell count, unspecified; E03.9 Hypothyroidism, unspecified; E27.8 Other specified disorders of adrenal gland; E78.5 Hyperlipidemia, unspecified; F41.9 Anxiety disorder, unspecified; G20 Parkinson's disease; I25.10 Atherosclerotic heart disease of native coronary artery without angina pectoris; K21.9 Gastro-esophageal reflux disease without esophagitis; K59.00 Constipation, unspecified; L50.9 Urticaria, unspecified; T36.8X5A Adverse effect of other systemic antibiotics, initial encounter; T38.0X5A Adverse effect of glucocorticoids and synthetic analogues, initial encounter; Y92.89 Other specified places as the place of occurrence of the external cause; Z63.4 Disappearance and death of family member
CPT/HCPCS: 36415; 50200; 74150; 76770; 77012; 80048; 80053; 80061; 81001; 82272; 82306; 82533; 82550; 82570; 82607; 82728; 83010; 83021; 83036; 83540; 83550; 83615; 83735; 83970; 84155; 84156; 84165; 84166; 84300; 84439; 85014; 85018; 85025; 85045; 85379; 85384; 85610; 85660; 86038; 86160; 86162; 86850; 86880; 86900; 86923; 88300; 93005; 99156; 99157; G0378; J0882; J2250; J3010; J2310; J2920; J7030; J7040; P9016